=== PATIENT | female | born 1980 | race American Indian/Alaskan Native ===

== ENCOUNTER 2020-02-17 09:10 | Observation (INO) | payer BC ==
--- NOTE | 2020-02-10 15:38 | History and Physical Report ---
History of Present Illness Date of examination: 02/09/20 History of present illness: Patient has been reassessed/reevaluated. H&P has been reviewed. No interval changes. This is a 39 years old female who presents with uterine fibroids. She complains of pelvic pressure, menorrhagia and intermenstrual bleeding, but den ies abdominal pain, abdominal pressure and pelvic pain. Prior to today's visit the patient has had an abdominopelvic CT scan, an US of pelvis and sonohysterogram which reveal leiomyomas. The patient also presents with menstrual disorder. She complains of heavy bleeding, dysmenorrhea, clotting, fatigue, history of ovarian cysts, and cramping, but denies irregular menses, mid-cycle spotting, lack of menses, history of thyroid disease, history of bleeding disorder and lightheadedness. Patient states symptoms are worsening. Patient's symptoms when present disrupts her normal daily activities Patient desires definitive treatment Vital Signs: Patient Profile: 39 Years Old Female LMP: 01/31/2020 Height: 64.5 inches Weight: 154 pounds BMI: 26.02 Temp: 97.5 degrees F BP sittin / 70 (left arm) Menstrual History: LMP (date): 01/31/2020 On BCP's at conception: no Current Method of Contraception: BTL Date of Last Pap Smear: 06/19/2017 Past History : 5 Term Births: 3 Premature Births: 1 Living Children: 4 Para: 4 Mult. Births: 0 Prev : 4 Aborta: 1 Elect. Ab: 0 Spont. Ab: 1 Ectopics: 0 [employer] History Operations: x4 last one with Tubal Ligation (2005) Abnormal PAP: positive Uterine Anomaly: positive fibroids Infection History HIV Risk Eval: no Hx of STD: chlamydia Current Allergies: No known allergies Past Medical History: Asthma [facility] PTSD Symptomatic COVID-19 Fibroids Past Surgical History: x4 last one with Tubal Ligation (2005) Family History Summary: MGM - Has Family History Breast Cancer - Great - Entered On: 07/02/2017 MGF - Has Family History of Prostate Cancer - Entered On: 07/02/2017 Uncle - Has Family History of Prostate Cancer - maternal - Entered On: 07/02/2017 Social History: Patient is Smoking History: Patient has never smoked. Risk Factors: Smoked Tobacco Use: Never smoker Smokeless Tobacco Use: Never Passive smoke exposure: no Drug use: no HIV high-risk behavior: no Caffeine use: 0 drinks per day Alcohol use: yes Type: occ Exercise: yes Times per week: 3 Seatbelt use: 100 % PAP Smear History: Date of Last PAP Smear: 06/19/2017 Review of Systems General Complains of fatigue. Denies fever, chills, sweats, anorexia, weakness, malaise, weight loss and sleep disorder. Complains of menorrhagia, pelvic pain and painful periods. Denies vaginal discharge, incontinence, dysuria, hematuria, urinary frequency, amenorrhea, abnormal vaginal bleeding, genital sores, decreased libido, painful sex, urinary urgency, hot flashes, vaginal dryness, vaginal itching and vaginal odor. CV Denies chest pains, palpitations, syncope, dyspnea on exertion, orthopnea, PND and peripheral edema. Resp Denies cough, dyspnea at rest, excessive sputum, hemoptysis, wheezing and pleurisy. GI Denies nausea, vomiting, diarrhea, constipation, change in bowel habits, abdominal pain, melena, hematochezia, jaundice, gas/bloating, indigestion/heartburn, dysphagia and odynophagia. Breast Denies left breast lump, right breast lump, nipple discharge, bloody discharge from nipple, breast pain, abnormal mammogram and breast enlargement. Psych Complains of anxiety, Past History Past Medical History: other (SEE HPI FOR DETAILS) Past Surgical History: , Other (SEE HPI FOR DETAILS) Social history: full code (SEE HPI FOR DETAILS) Family history: other (SEE HPI FOR DETAILS) Medications and Allergies Allergies Allergy/AdvReac Type Severity Reaction Status Date / Time No Known Allergies Allergy Unverified 09/20/13 16:49 Home Medications Medication Instructions Recorded Confirmed Last Taken Type Fluticasone/Umeclidin/Vilanter 1 each IH PRN PRN 02/09/20 02/09/20 Unknown History [Trejania Ellipta 100-62.5-25] Ipratropium/Albuter (Nf) 1 puff INHALATION DAILY 02/09/20 02/09/20 Unknown Hist ory Active Meds: Active Medications Cefazolin Sodium (Ancef/Sterile Water 2 Gm/20 Ml) 2 gm in 20 mls @ 80 mls/hr IV PREOP NR; Protocol Stop: 02/17/20 20:00 Review of Systems Constitutional: other (SEE HPI FOR DETAILS) Exam - Physical Exam Narrative exam: HEENT: normocephalic, no lesions or deformities Skin no significant abnormal lesions or rashes Chest: respiratory effort normal, clear to auscultation Breasts: no masses or nipple discharge CV: regular, normal S1-S2, no murmur, no rub, no gallop Abdomen: soft, tender, no masses, vertical and pfannestial Neuro: no gross anomalities Extremities: no clubbing, cyanosis, or edema [employer] Exams Vulva/Vagina: No lesions, normal BUS, normal rugae Cervix: No lesions; no cervical motion tenderness Uterus: enlarged uterus 8 - 10 weeks size Adnexae: no masses or tenderness Rectovaginal: exam defered Results - Labs CBC & Chem 7: 02/10/20 11:20 02/14/20 11:20 Assessment and Plan - Patient Problems (1) Intramural leiomyoma of uterus Current Visit: No Status: Acute Plan to address problem: Diagnosis explained to patient . Questions answered. Discussed with patient various medical, surgical and radiological therapies common for treatment including expectant management, myomectomy hysterectomy and uterine artery embolization Patient's symptoms when present disrupts her normal daily activities Patient desires definitive treatment Patient desires hysterectomy Discussed risks and benefits of laparotomy, laparoscopy, vaginal and robotic assisted approaches for hysterectomies Patient desires robotic assisted total hysterectomy. Consent reviewed and signed . The risks and alternatives for this surgery were reviewed with the patient. Discuss the risks of the surgery including infection, bleeding possibly heavy enough to require a blood transfusion, possible damage to bowel, bladder or ureter. Patient understand that this surgery with make her sterile.Patient understands if her ovaries are removed she will become menopausal. Also if unable to complete robitcally a laparotomy may be required Patient understands her risks of adjacent organ damage and the need for a laparotomy are increased due to her previous surgery(ies) Patient understands and desires to proceed. (2) Dysmenorrhea Current Visit: No Status: Acute Plan to address problem: Probably secondary to # 1 (3) Menorrhagia Current Visit: No Status: Acute Qualifiers: Menorrhagia type: with regular cycle Qualified Code(s): N92.0 - Excessive and frequent menstruation with regular cycle Plan to address problem: Probably secondary to # 1 (4) History of 2019 novel coronavirus disease (COVID-19) Current Visit: No Status: Acute Plan to address problem: Patient was hospitalized and symptomatic. 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
--- NOTE | 2020-02-14 11:47 | Anesthesia Consultation ---
Anesthesia Consult and Med Hx Date of service: 02/17/20 - Airway Anesthetic Teeth Evaluation: Chipped ROM Head & Neck: Adequate Mental/Hyoid Distance: Adequate Mallampati Class: Class II Intubation Access Assessment: Good - Pre-Operative Health Status ASA Pre-Surgery Classification: ASA3 Proposed Anesthetic Plan: General Nerve Block: TAP - Pulmonary Hx Smoking: No (+Pulmonary clearance) Hx Asthma: No Hx Respiratory Symptoms: Yes (Had COVID in April and has residual pulmonary symptoms) SOB: Yes COPD: No Hx Pneumonia: No Hx Sleep Apnea: No - Cardiovascular System Hx Hypertension: No (+Cardiac clearance) Hx Heart Attack/AMI: No Hx Cardia Arrhythmia: Yes (Palpitations and had Holter monitor. BBB) Hx Pacemaker: No Hx Internal Defibrillator: No Hx Heart Murmur: No - Central Nervous System Hx Neuromuscular Disorder: Yes (Peripheral neuropathy) Hx Seizures: No Hx Back Pain: No Hx Psychiatric Problems: Yes (PTSD. Memory issues) - Gastrointestinal Hx Gastroesophageal Reflux Disease: Yes (Occasional) - Endocrine Hx End Stage Renal Disease: No Hx Cirrhosis: No Hx Liver Disease: No - Hematic Hx Anemia: No Hx Sickle Cell Disease: Yes (TRAIT) - Other Systems Hx Alcohol Use: No Hx Substance Use: No Hx Cancer: No Hx Obesity: No
[2020-02-14 12:05] LABS: Basophils % (Auto) 0.6 % (0.0-1.8); Eosinophils # (Auto) 0.1 K/mm3 (0.0-0.4); Eosinophils % (Auto) 1.1 % (0.0-4.3); Hematocrit 32.5 % (30.3-42.9); Hemoglobin 10.8 gm/dl (10.1-14.3); Lymphocytes # (Auto) 1.2 K/mm3 (1.2-5.4); Lymphocytes % (Auto) 23.6 % (13.4-35.0); Mean Corpuscular HGB Conc 33 % (30-34); Mean Corpuscular Volume 77 fl (79-97); Monocytes # (Auto) 0.4 K/mm3 (0.0-0.8); Monocytes % (Auto) 8.7 % (0.0-7.3); Platelet Count 404 K/mm3 (140-440); Red Blood Count 4.21 M/mm3 (3.65-5.03); Red Cell Distribution Width 18.6 % (13.2-15.2)
[2020-02-15 16:31] LABS: Alanine Aminotransferase 11 units/L (7-56); Blood Urea Nitrogen 6 mg/dL (7-17); Calcium 9.1 mg/dL (8.4-10.2); Hemolysis Index 4
[2020-02-15 16:32] LABS: BUN/Creatinine Ratio 10
[~2020-02-17 09:10] MED LIST: ACETAMINOPHEN 500 MG TAB PO ONE; CELECOXIB 200 MG CAP PO NR; GABAPENTIN 300 MG CAP PO NR; LACTATED RINGERS 1,000 ML IV SCH; MAGNESIUM OXIDE 400 MG TAB PO ONE; MIDAZOLAM 2 MG/2 ML INJ IV NR; ceFAZolin/Water 2 GM/20 ML 2 GM/20 ML SYRINGE IV NR; fentaNYL 100 MCG/2 ML INJ IV ONE; fentaNYL 100 MCG/2 ML INJ ONE
[2020-02-17] MEDS ORDERED: MAGNESIUM OXIDE 400 MG TAB PO ONE (09:11)
[2020-02-17] MEDS ORDERED: ACETAMINOPHEN 500 MG TAB ONE (09:11)
--- NOTE | 2020-02-17 09:30 | Anesthesia Day of Surgery ---
Anesthesia Day of Surgery - Day of Surgery Patient Examined: Yes Patient H&P Reviewed: Yes Patient is NPO: Yes
[2020-02-17] MEDS ORDERED: BUPIVACAINE-EPINEPHRINE/PF 0.25%-1:200,000 (30 ML) VIAL INFILTRATI ONE (09:34)
[2020-02-17] MEDS ORDERED: dexAMETHasone 4 MG/ML VIAL ONE (09:35)
[2020-02-17] MEDS ORDERED: fentaNYL 100 MCG/2 ML INJ ONE (09:48)
[2020-02-17] MEDS ORDERED: ROCURONIUM 50 MG/5 ML INJ IV ONE (09:48)
[2020-02-17] MEDS ORDERED: LIDOCAINE MPF (2%) 20 MG/1 ML VIAL 5 ML ONE (09:48)
[2020-02-17] MEDS ORDERED: propofoL 200 MG/20 ML VIAL IV ONE (09:49)
[2020-02-17] MEDS ORDERED: NEOMY 40 MG/POLYMYXIN B 200,000 UNITS/ML (GU) AMPULE IR ONE ×2 (10:10→10:58)
[2020-02-17] MEDS ORDERED: SODIUM CHLORIDE 0.9% IRR 1,500 ML BOTTLE IR ONE (10:58)
[2020-02-17] MEDS ORDERED: SODIUM CHLORIDE 0.9% IRRIG SOLN 2000 ML IR ONE (10:58)
[2020-02-17] MEDS ORDERED: ONDANSETRON 4 MG/2 ML INJ ONE (11:45)
[2020-02-17] MEDS ORDERED: dexAMETHasone 20 MG/5 ML VIAL ONE (11:45)
[2020-02-17] MEDS ORDERED: NEOSTIGMINE 10MG/10 ML INJ MDV ONE (12:36)
[2020-02-17] MEDS ORDERED: GLYCOPYRROLATE 0.4 MG/2 ML INJ ONE (12:36)
[2020-02-17] MEDS ORDERED: HYDROmorphone 1 MG/1 ML INJ ONE (12:37)
[2020-02-17] MEDS ORDERED: KETOROLAC 30 MG/1 ML INJ ONE (13:12)
--- NOTE | 2020-02-17 13:28 | Operative Report ---
Operative Report Operative Report: Date of procedure: February 17, 2020 Pre-operative diagnosis: Symptomatic leiomyomata with menorrhalgia and dysmenorrhea. Chronic pelvic pain Post-operative diagnosis: Same plus pelvic adhesive disease Procedure name(s):Robotic Assisted Total Hysterectomy with bilateral salpingectomy with lysis of adhesions Surgeon: Jose D Olivia MD Assembler Ping Pong Table: Amparo Torres, certified medical coding specialist Anesthesia: General EBL: 50 cc Complications: Uterine perforation, with the V care manipulator. Findings: Patient with thick omental adhesions to anterior abdominal wall along the line of her midline incisions also adhesions between the anterior uterine wall including the leiomyomata with the anterior abdominal wall and to the bladder. Patient had interrupted fallopian tubes bilaterally and normal- appearing ovaries with simple cyst on both ovaries Specimen(s): Uterus with cervix and fallopian tubes Procedure: Patient was brought to the operating room where general anesthesia was induced without difficulty. Patient was placed in the dorsal lithotomy position. Prepped and draped in the usual sterile manner for robotic procedure. Wick catheter was placed without difficulty. Speculum was placed in the vagina. A small V-Care Uterine manipulator was placed without difficulty. Attention was now switched to the patient's abdomen. A vertical supra-umbilicus incision was made with a scalpel. A 10-12 trocar was placed in this incision under direct visualization. Intra-abdominal placement was verified with no evidence of internal organ damage. The patient pelvic findings were noted as above. Including the uterine perforation but no evidence of internal organ damage. It was determined that the patient was a candidate for robotic procedure. On both sides the umbilical incision at about 8 cm, incisions were made for robotic trocars. Each robotic trocar was placed under direct visualization with no evidence of internal organ damage. Laparoscopic scissors were then placed in the robotic trocars and omental adhesion were taken down in order to the visualized area for the right lower quadrant placement of trocar. One 5 mm trocar was placed 2 fingerbreadths above the right iliac crest. A 5 mm camera was placed in the right lower quadrant trocar, the 10-12 trocar was removed and a Oscar Quinteros laparoscopic port closure device was placed through this incision under direct visualization with no evidence of internal organ damage. The camera was then replaced into this port. At this time the patient was placed in extreme Trendelenburg. The da John robot was then docked on the patient's left side. The trocars connected to the robot appropriately robotic instruments were placed under direct visualization no evidence of internal organ damage.. At this time I took my place under the robotic operating roldan. To further include visualization, I removed the omental adhesions from the anterior abdominal wall sharply and with cautery with the robotic scissors. Also initiated removal of adhesions the anterior uterus and anterior abdominal wall. After the lysis of adhesions the anatomy on the patient's right adnexa could be more clearly seen. Starting on the patient's right side the ureter was identified and found to be out of the operative field. Using the robotic vessel sealer the mesosalpinx under the fallopian tube were cauterized and cut starting from the distal end. Utero-ovarian complex was then cauterized and cut. This was followed by cauterizing and cutting the right fallopian tube and right round ligament. The broad ligament was then opened. The bladder flap was formed anteriorly. The posterior broad ligament was then excised. The uterine vessels were skeletonized. The ureter was clearly seen out of the operative field. The bladder adhesions were taken down and were further pushed away from the anterior uterus. The right uterine vessels were then cauterized and cut. Attention was then switched to the patient's left side. The same procedure was repeated on the left side with perform the salpingectomy followed by isolating the uterine vessels cauterized and cutting and completing the bladder flap from the left side after the completely the uterus from the bladder anteriorly. At this time the uterus was appearing very cyanotic. After inspecting the bladder flap to insured no evidence of bladder injury, the colpotomy was then started. Incision started at 6:00 until the V-Care could be seen. This incision was extended from 6:00 to 9:00. Then from 6:00 to 3:00. Then from 9:00 to 12:00. This incision was extended from 3:00 to 12:00. At this time colpotomy was complete with no evidence of adjacent organ damage. The field technical assistant remove the uterus from through the colpotomy site. The vaginal cuff was irrigated and cauterized and found to be hemostatic. The cuff was closed with roboticly using 0 V- Lock suture. This closure was hemostatic after irrigation and Bovie. All pedicles were inspected and found to be hemostatic. The ureters were identified bilaterally and found to be functioning normal. The patient had clear urine in the Wick catheter with no evidence of mixture with blood. Alex was placed on the cuff and pedicles for postoperative hemostasis . All instruments were then removed. The large trocar sites were closed in layers 2-0 Vicryl and 4-0 Monocryl. The smaller incisions were closed subcuticularly with 4-0 Monocryl. Dermabond was placed over the skin incisions. The patient tolerated procedure well. She was awakened in the operating room and accompanied to the recovery room in good condition.
--- NOTE | 2020-02-17 13:29 | Short Stay Summary ---
Short Stay Documentation Date of service: 02/17/20 - History Past Medical History: other (SEE HPI FOR DETAILS) Past Surgical History: , Other (SEE HPI FOR DETAILS) Social history: full code (SEE HPI FOR DETAILS) - Allergies and Medications Current Medications: Allergies No Known Allergies Allergy (Unverified 09/20/13 16:49) Home Medications Medication Instructions Recorded Confirmed Last Taken Type Fluticasone/Umeclidin/Vilanter 1 each IH PRN PRN 02/09/20 02/17/20 02/17/20 07:00 History [Trelemelani Ellipta 100-62.5-25] Ipratropium/Albuter (Nf) 1 puff INHALATION DAILY 02/09/20 02/09/20 Unknown History Ibuprofen [Motrin 800 MG tab] 800 mg PO Q6H PRN #30 tablet 02/17/20 Unknown Rx oxyCODONE /ACETAMINOPHEN [Percocet 1 - 2 tab PO Q6HR PRN #20 tablet 02/17/20 Unknown Rx 5/325 mg] Active Medications Celecoxib (Celecoxib 200 Mg Cap) 400 mg PO PREOP NR Stop: 02/17/20 23:59 Last Admin: 02/17/20 09:40 Dose: 400 mg Documented by: Gabapentin (Gabapentin 300 Mg Cap) 600 mg PO PREOP NR Stop: 02/17/20 23:59 Last Admin: 02/17/20 09:40 Dose: 600 mg Documented by: Cefazolin Sodium (Ancef/Sterile Water 2 Gm/20 Ml) 2 gm in 20 mls @ 80 mls/hr IV PREOP NR; Protocol Stop: 02/17/20 20:00 Lactated Ringer's (Lactated Ringers) 1,000 mls @ 125 mls/hr IV DIRECT [id number] Last Admin: 02/17/20 09:45 Dose: 125 mls/hr Documented by: Midazolam HCl (Midazolam 2 Mg/2 Ml Inj) 2 mg IV PREOP NR Stop: 02/17/20 23:59 Last Admin: 02/17/20 09:50 Dose: 2 mg Documented by: - Brief post op/procedure progress note Date of procedure: 02/17/20 (See dictated operative note for details) - Hospital course Hospital course: Patient was admitted and underwent above procedure without complications. Her post operative course was benign but patient did have some complaints of prolonged nausea and a cough. I prolong her observation due to her history of having complications from Covid infection including pulmonary disease and cardiac disease. Patient had a normal chest x-ray and had O2 saturations greater than 95% throughout her hospital stay. She was afebrile throughout. Patient did complain of some weakness in the legs postoperatively. Patient did not reveal to me that she been having neurological symptoms that preceded her surgery including some difficulty sometimes with the memory and some weakness in her legs and has started undergoing evaluation by her neurologist. Patient states his weakness she experienced has been her normal. I did observe the patient overnight, on morning of discharge patient states she is walking around without any difficulty. Patient postoperative day 1 hematocrit was in an acceptable range. Patient had no orthostatic symptoms. Patient was tolerating regular diet and voiding without difficulty at time of discharge. Patient incision was healing well without evidence of infection. - Disposition Condition at discharge: Fair Disposition: DC-01 TO HOME OR SELFCARE - Discharge Diagnoses (1) Intramural leiomyoma of uterus Status: Acute (2) Dysmenorrhea Status: Acute (3) Menorrhagia Status: Acute Qualifiers: Menorrhagia type: with regular cycle Qualified Code(s): N92.0 - Excessive and frequent menstruation with regular cycle (4) History of 2019 novel coronavirus disease (COVID-19) Status: Chronic (5) Postoperative nausea and vomiting Status: Acute (6) Coughing Status: Acute Short Stay Discharge Plan Activity: advance as tolerated, fall precautions Diet: regular Wound: open to air Additional Instructions: Patient instructed no heavy lifting for 4 weeks. No intercourse for 8 weeks. Call office for fever, chills, nausea, vomiting or pain not controlled by pain medications. Ambulation is encouraged. Patient's call for heavy vaginal bleeding. Patient instructed to keep her scheduled post operative office appointment. Follow up with: GUILHERME YANG MD [Primary Care Provider] - 7 Days Prescriptions: Ibuprofen [Motrin 800 MG tab] 800 mg PO Q6H PRN #30 tablet PRN Reason: Pain oxyCODONE /ACETAMINOPHEN [Percocet 5/325 mg] 1 - 2 tab PO Q6HR PRN #20 tablet PRN Reason: Pain
--- NOTE | 2020-02-17 13:49 | Post Anesthesia Evaluation ---
- Post Anesthesia Evaluation Patient Participated: Yes Airway Patent: Yes Stable Respiratory Function: Yes Nausea/Vomiting: No Temp > 96.8F: Yes Pain Manageable: Yes Adequeate Hydration: Yes Anesthesia Complications: No Block Receding Appropriately: Yes Patient on Ventilator: No
[2020-02-17] MEDS ORDERED: ACETAMINOPHEN 325 MG TAB PO PRN (15:20)
[2020-02-17] MEDS ORDERED: HYDROcodone/ACETAMINOPHEN 5-325 MG TAB PO PRN (15:20)
[2020-02-17] MEDS ORDERED: KETOROLAC 30 MG/1 ML INJ IV SCH (15:20)
[2020-02-17] MEDS: ceFAZolin/NS 1 GM/50 ML 1 GM/50 ML BAG IV SCH ×2 (15:49→23:48)
[2020-02-17] MEDS: D5W/LACTATED RINGERS 1,000 ML IV SCH ×2 (15:49→23:48)
--- NOTE | 2020-02-17 18:15 | Event Note ---
Date: 02/17/20 Day of surgery. Discuss operative findings with patient and questions answered. Patient without fever. Patient is with some mild nausea and vomiting. Patient also has had some coughing postop. We will continue observation to the patient recent history of complication COVID 19 infection. Will ambulate in halls this evening. Will advance diet as tolerated. Will monitor urine output. We will continue routine postoperative care.
[2020-02-17] MEDS: oxyCODONE /ACETAMINOPHEN 5-325MG TAB PO PRN (18:43)
[2020-02-17] MEDS: DOCUSATE SODIUM 100 MG CAP PO SCH (21:48)
[2020-02-18] MEDS ORDERED: PHENOL 1.4% 177 ML BOTTLE MM PRN (00:39)
[2020-02-18] MEDS ORDERED: guaiFENesin DM 200/20 MG ORAL LIQD 10 ML PO PRN (00:47)
--- NOTE | 2020-02-18 00:54 | Progress Note ---
Assessment and Plan - Patient Problems (1) Intramural leiomyoma of uterus Current Visit: No Status: Acute (2) Dysmenorrhea Current Visit: No Status: Acute (3) Menorrhagia Current Visit: No Status: Acute Qualifiers: Menorrhagia type: with regular cycle Qualified Code(s): N92.0 - Excessive and frequent menstruation with regular cycle (4) History of 2019 novel coronavirus disease (COVID-19) Current Visit: No Status: Chronic (5) Postoperative nausea and vomiting Current Visit: Yes Status: Acute (6) Coughing Current Visit: Yes Status: Acute Plan to address problem: Patient still cough and lung exam is clear. Patient did have a surgical clearance pulmonary, but due to her history of Covid disease with pulmonary symptoms will obtain chest x-ray and give the albuterol treatment. O2 sats greater than 95%. Patient denies any shortness of breath. (7) Status post hysterectomy Current Visit: Yes Status: Acute (8) Leg numbness Current Visit: Yes Status: Acute Plan to address problem: Patient says is a symptom she has had for quite a while and was seeing a neurologist, but she failed to mention in this to me prior to her surgery. Patient states that this comes and goes and she feels what she is having right now with normal. We will continue to observe her symptoms persist will obtain neurology consult. Subjective Date of service: 02/18/20 Patient Reports: Positive: feels better, pain is less, tolerating liquids well, tolerating a regular diet, voiding w/o difficulty, no flatus, nausea, afebrile, other (Patient states that she has had some leg numbness that she states is part of her normal but did not admit this prior to surgery). Negative: shortness of breath (Patient with a cough and complaining of scratchy throat and a 'little chest tightness' but denies shortness of breath) Objective Vital Signs - 12hr 02/17/20 02/17/20 02/17/20 12:57 13:05 13:10 Temperature 97.4 F L Pulse Rate 67 59 L 53 L Pulse Rate [ Radial] Respiratory 14 14 13 Rate Respiratory Rate [Abdomen] Blood Pressure 162/86 142/86 149/83 Blood Pressure [Left] O2 Sat by Pulse 100 100 100 Oximetry 02/17/20 02/17/20 02/17/20 13:15 13:30 13:45 Temperature Pulse Rate 54 L 58 L 59 L Pulse Rate [ Radial] Respiratory 12 13 14 Rate Respiratory Rate [Abdomen] Blood Pressure 157/88 157/85 145/75 Blood Pressure [Left] O2 Sat by Pulse 100 100 100 Oximetry 02/17/20 02/17/20 02/17/20 14:00 14:15 14:40 Temperature 98.0 F 97.6 F Pulse Rate 59 L 63 60 Pulse Rate [ Radial] Respiratory 14 14 16 Rate Respiratory Rate [Abdomen] Blood Pressure 147/75 150/75 155/64 Blood Pressure [Left] O2 Sat by Pulse 100 100 99 Oximetry 02/17/20 02/17/20 02/17/20 15:25 15:53 20:22 Temperature 97.6 F Pulse Rate 56 L Pulse Rate [ 68 Radial] Respiratory 16 16 Rate Respiratory 18 Rate [Abdomen] Blood Pressure Blood Pressure 155/64 [Left] O2 Sat by Pulse 100 Oximetry 02/17/20 21:42 Temperature 98.6 F Pulse Rate 85 Pulse Rate [ Radial] Respiratory 16 Rate Respiratory Rate [Abdomen] Blood Pressure 128/69 Blood Pressure [Left] O2 Sat by Pulse 97 Oximetry - General physical appearance well developed, well nourished - Neck no masses - Respiratory normal respiratory effort, clear to auscultation - Abdomen soft, tender (Appropriately), bowel sounds hypoactive, distended (Appropriately), surgical scars (Intact) - Integumentary no rash, no growths, no abnormal pigmentation - Neurologic normal coordination, normal sensation - Psychiatric oriented to time, oriented to person, oriented to place, speech is normal, memory intact - Labs 02/10/20 11:20 02/14/20 11:20
[2020-02-18] MEDS: oxyCODONE /ACETAMINOPHEN 5-325MG TAB PO PRN ×3 (01:30→15:22)
--- NOTE | 2020-02-18 01:59 | XRay Report ---
CHEST 1 VIEW [id number] INDICATION / CLINICAL INFORMATION: chest pain COMPARISON: None available. FINDINGS: SUPPORT DEVICES: None HEART / MEDIASTINUM: No significant abnormality. LUNGS / PLEURA: No significant pulmonary or pleural abnormality. No pneumothorax. ADDITIONAL FINDINGS: A small pneumoperitoneum is noted. In discussion with the patient's nurse, this is thought related to recent laparoscopy IMPRESSION: No significant abnormalities Signer Name: Marvin Headley MD Signed: 02/18/2020 1:55 AM Workstation Name: [id number]
[2020-02-18] MEDS ORDERED: ONDANSETRON 4 MG/2 ML INJ IV PRN (03:31)
[2020-02-18] MEDS ORDERED: IBUPROFEN 800 MG TAB PO PRN (06:00)
[2020-02-18] MEDS: ALBUTEROL 2.5 MG/3 ML NEBU IH SCH ×2 (07:14→09:14)
[2020-02-18 08:39] LABS: Hematocrit 29.2 % (30.3-42.9); Hemoglobin 9.7 gm/dl (10.1-14.3); Mean Corpuscular HGB Conc 33 % (30-34); Mean Corpuscular Volume 77 fl (79-97); Platelet Count 353 K/mm3 (140-440); Red Blood Count 3.78 M/mm3 (3.65-5.03); Red Cell Distribution Width 18.4 % (13.2-15.2)
[2020-02-18 08:59] LABS: Blood Urea Nitrogen 4 mg/dL (7-17); Calcium 8.5 mg/dL (8.4-10.2); Hemolysis Index 3
[2020-02-18 09:11] LABS: BUN/Creatinine Ratio 7
[2020-02-18] MEDS: DOCUSATE SODIUM 100 MG CAP PO SCH (10:34)
--- NOTE | 2020-02-18 11:03 | Event Note ---
Date: 02/18/20 Pt c/o having some nausea with emesis noted as provider stood at the bedside. States she has covid induced reflux and was treated for 2 months for it. I d/w a does of pepcid to see if it relieves her symptoms. She expressed understanding and agrees with plan of care. She has a abdomen that is soft and does not appear to be distended. Expected post op tenderness is noted.
[2020-02-18 11:37] LABS: Hypochromasia 1+; Platelet Estimate Consistent w Auto; Total Cells Counted 100
[2020-02-18] MEDS ORDERED: SIMETHICONE 80 MG CHEW TAB PO PRN (11:40)
[2020-02-18 11:56] VITALS: BP 121/73
[2020-02-18] MEDS ORDERED: FAMOTIDINE 20 MG/2 ML INJ IV SCH (12:30)
== END 2020-02-18 15:50 | disposition home or self-care (01) ==
LOC: OR 09:10 → OB 13:29
PROVIDERS: ADMIT Obstetrics & Gynecology; ATTEND Obstetrics & Gynecology
DX: D25.1 Intramural leiomyoma of uterus (principal); Z20.828 Contact with and (suspected) exposure to other viral communicable diseases; N94.6 Dysmenorrhea, unspecified; N92.0 Excessive and frequent menstruation with regular cycle; N73.6 Female pelvic peritoneal adhesions (postinfective); F41.9 Anxiety disorder, unspecified; R05 Cough; R20.0 Anesthesia of skin; Z86.19 Personal history of other infectious and parasitic diseases; Z98.890 Other specified postprocedural states; Z90.710 Acquired absence of both cervix and uterus; Z98.51 Tubal ligation status; Z98.891 History of uterine scar from previous surgery
CPT/HCPCS: 36415; 58571; 64450; 71045; 80048; 80053; 84703; 85007; 85025; 86850; 86900; 86901; 88307; 94640; 96361; 96365; 96366; 96375; A4217; G0378; J0690; J1100; J1170; J1885; J2250; J2405; J2704; J2710; J3010; J7120; J7121; S2900; U0003